=== PATIENT | female | born 1985 | race Caucasian/White ===

== ENCOUNTER 2023-03-31 04:14 | Emergency (ER) | payer BC, MEDICAID ==
[2023-03-31] MEDS: predniSONE 10 MG Tab PO ONE (05:02)
[2023-03-31] MEDS: Lidocaine 2% Viscous Solution 15 ML UD PO ONE (05:03)
[2023-03-31] MEDS: Ketorolac 60 MG/2 ML SDV IM ONE (05:03)
[2023-03-31] MEDS: cefTRIAXone 1 GM, Lidocaine 1% 2.1 ML IM ONE (05:05)
== END 2023-03-31 06:00 | disposition home or self-care (01) ==
LOC: JD.ED 04:14
DX: K02.9 Dental caries, unspecified (principal); K06.9 Disorder of gingiva and edentulous alveolar ridge, unspecified; Z88.5 Allergy status to narcotic agent; Z91.048 Other nonmedicinal substance allergy status
CPT/HCPCS: 96372; 99283; A9270; J0696; J1885; J7512; J3490